=== PATIENT | male | born 1950 | race Caucasian/White ===

== ENCOUNTER 2021-05-14 10:26 | Emergency (ER) | payer OTHER ==
[~2021-05-14] VITALS: Ht 170.2 cm; Wt 74.8 kg
--- NOTE | 2021-05-14 10:30 | NUR ---
Pt brought straight back to room ED2B via walking by contracts representative Claudia for anxiety/SOB. Pt placed on gurney in pos of comfort, connected to bedside monitor. Pt is AAOx4 with good color, temp and appearance. MZL=323/92, 81bpm, 98% RA, 18rpm. Pt dressed into gown, denies any pain, nausea, or discomfort. Awaiting EDMD for eval.
--- NOTE | 2021-05-14 10:35 | NUR ---
EDMD at bedside for eval and PE. lungs clear, RRR without m/g/r, oxygenating and perfusing well. Verbal order given for IV ativan 1mg/0.5ml plus lab work.
[2021-05-14] MEDS ORDERED: NORCO PO (10:36)
--- NOTE | 2021-05-14 10:45 | NUR ---
EKG performed by [facility]. PCXR taken promptly after.
--- NOTE | 2021-05-14 10:55 | NUR ---
20g angio inserted in Rt ac without difficulty, labs drawn and sent and line flushed with ordered medication and 10cc NS. Pt states feeling much better. there is a marked decrease in SBP. 137/79, 78bpm, 16rpm, 98% RA.
[2021-05-14] MEDS ORDERED: LORAZEPAM 2 MG/1 ML VIAL ONE (10:57)
[2021-05-14] MEDS ORDERED: CLONIDINE PO (10:57)
--- NOTE | 2021-05-14 10:57 | NUR ---
Patient and spouse are AOX4 but can not recall the exact dosages of patient's home medicines at this time.
[2021-05-14] MEDS ORDERED: HYDR-4354 PO (10:58)
[2021-05-14] MEDS ORDERED: LORAZEPAM 2 MG/1 ML VIAL IV ONE (11:00)
--- NOTE | 2021-05-14 11:18 | NUR ---
Brennan andrewsmikey in [facility] - 05/14/21 at 1118 by LYNDA [id number]
[2021-05-14 11:22] LABS: MEAN CORPUSCULAR HEMOGLOBIN 30.2 uug (23.8-33.4); MEAN CORPUSCULAR VOLUME 88.6 fL (73.0-96.2); PLATELET COUNT (AUTO) 339 K/uL (152-348)
[2021-05-14 11:35] LABS: CREATININE 0.8 mg/dL (0.6-1.3); POTASSIUM 3.5 mmol/L (3.5-5.1)
--- NOTE | 2021-05-14 12:36 | NUR ---
Pt waiting to be taken down to CT.
[2021-05-14] MEDS ORDERED: SWABABLE VALVE TRANSFER SET EA MC ONE (12:41)
[2021-05-14] MEDS ORDERED: IOHEXOL 350 100 ML INFUS..BTL ONE (12:42)
[2021-05-14] MEDS ORDERED: IV NORMAL SALINE 250 ML IV ONE (12:42)
[2021-05-14] MEDS ORDERED: LORA-258 PO (14:58)
--- NOTE | 2021-05-14 15:11 | NUR ---
EDMD at bedside discussing dispo with pt and pt's . EDMD spoke to pt at length about pt's obtions. Pt getting ready to be DCed home.
--- NOTE | 2021-05-14 16:11 | NUR ---
EDMD is having some tech issues prescribing ativan to the pt. We have been waiting for IT to call back and help resolve this issue for the last 2.5hrs. IT contacted to resolve tech issue. EDMD speaking to [place] [employer] currently. Pt is aware of issue and is waiting quitely and patiently to be DCed home.
[2021-05-14] MEDS ORDERED: LORA0.5T48 GT (16:14)
--- NOTE | 2021-05-14 16:20 | NUR ---
Pt given DC instructions and medication info. Pt confirmed understanding of aftercare. Pt said he will follow up with new PMD within the next week. Pt has good color, temp and appearance. VSS, PE WNL, denies any pain, nausea, sob, dizziness or discomfort. Pt states feeling much better, anxiety has resolved. Lungs clear, RRR without ectopy. oxygenating and perfusing well. No s/sx of distress present.
[2021-05-14 17:54] VITALS: BP 132/83
== END 2021-05-14 16:20 | disposition home or self-care (01) ==
LOC: ER 10:26
DX: F41.9 Anxiety disorder, unspecified (principal); R06.02 Shortness of breath; I51.7 Cardiomegaly; R79.1 Abnormal coagulation profile
CPT/HCPCS: 36415; 71045; 71275; 80048; 83880; 84484; 85025; 85379; 96374; 99285; J2060; Q9967; 70030-TC; A4663; J7050

== ENCOUNTER 2021-09-18 00:38 | Emergency (ER) | payer OTHER ==
[~2021-09-18] VITALS: Ht 170.2 cm; Wt 74.8 kg
[~2021-09-18 00:38] MED LIST: CLONIDINE PO; HYDR-4354 PO; LORA0.5T48 GT
[2021-09-18] MEDS ORDERED: LORAZEPAM 2 MG/1 ML VIAL IM ONE (01:15)
[2021-09-18] MEDS ORDERED: LORAZEPAM 2 MG/1 ML VIAL ONE (01:16)
[2021-09-18] MEDS ORDERED: ALPR0.5T PO (01:24)
--- NOTE | 2021-09-18 01:44 | NUR ---
Patient discharged to home in stable condition. Written and verbal after care instructions given. Patient verbalizes understanding of instructions. Stressed follow up or return to ER for worsening s/s. pt ambulated with steady gait. denies pain. no sob. no chest pain. accompanied by .
[2021-09-18 01:48] VITALS: BP 139/90
== END 2021-09-18 01:49 | disposition home or self-care (01) ==
LOC: ER 00:46
DX: F41.9 Anxiety disorder, unspecified (principal); R13.10 Dysphagia, unspecified; R03.0 Elevated blood-pressure reading, without diagnosis of hypertension; Z79.899 Other long term (current) drug therapy
CPT/HCPCS: 96372; 99283; J2060; A4663